=== PATIENT | female | born 1975 | race Caucasian/White ===

== ENCOUNTER 2021-04-20 12:11 | Emergency (ER) | payer BC ==
[~2021-04-20] VITALS: Ht 160 cm; Wt 68.0 kg
[2021-04-20 12:19] VITALS: BP 127/79
== END 2021-04-20 17:54 | disposition home or self-care (01) ==
LOC: ED 12:11
DX: U07.1 COVID-19 (principal); J12.82 Pneumonia due to coronavirus disease 2019

== ENCOUNTER 2025-02-24 16:12 | Emergency (ER) | payer BC ==
[~2025-02-24] VITALS: Ht 160 cm; Wt 73.9 kg
[2025-02-24 16:47] LABS: BASO # 0.0 10*3/uL (0.0-0.1); BASO % 0.3 % (0.0-1.0); EOS # 0.2 10*3/uL (0.0-0.4); EOS % 1.5 % (1.0-4.0); MEAN CELL VOLUME 87.8 fl (81.0-99.0); MEAN CORPUSCULAR HGB 28.5 pg (27.0-31.0); MEAN PLATELET VOLUME 10.4 fl (9.6-12.3); MONO # 0.7 10*3/uL (0.1-1.0); MONO % 5.9 % (3.0-9.0); NEUT # 7.4 10*3/uL (2.3-7.9); NEUT % 63.6 % (47.0-73.0); NUCLEATED RED BLOOD CELL 0.0 % (0.0-0.0); NUCLEATED RED BLOOD CELL 0.0 10*3/uL (0.0-0.0); PLATELET COUNT AUTOMATED 284 10*3/uL (130-400); RED CELL DISTRI WIDTH 12.8 % (0-14.5)
[2025-02-24 17:05] LABS: BUN 11 mg/dl (9-23)
[2025-02-24 18:44] VITALS: BP 103/60
== END 2025-02-24 19:11 | disposition home or self-care (01) ==
LOC: ED 16:12
PROVIDERS: Student in an Organized Health Care Education/Training Program
DX: R55 Syncope and collapse (principal)

== ENCOUNTER → 2025-02-27 | Outpatient (CLI) | payer BC | END | disposition home or self-care (01) | LOC: MRI 07:46 | PROVIDERS: ATTEND Chiropractor | DX: M75.52 Bursitis of left shoulder (principal); M25.412 Effusion, left shoulder; M77.8 Other enthesopathies, not elsewhere classified; M25.512 Pain in left shoulder ==